=== PATIENT | female | born 1980 | race Caucasian/White ===

== ENCOUNTER 2017-01-07 14:20 | Emergency (ER) | payer OTHER ==
[~2017-01-07] VITALS: Ht 162.6 cm; Wt 97.1 kg
[2017-01-07 14:20] VITALS: BP 116/68
[~2017-01-07 14:20] MED LIST: HYDR-79 PO; HYDR5SOL PO; ONDA8TAB12 PO
--- NOTE | 2017-01-07 14:46 | PHYS DOC ---
Past History Past Medical History: Diabetes, Hypertension, Other Past Surgical History: No Surgical History Alcohol Use: None Drug Use: None Adult General Chief Complaint Chief Complaint: SHORTNESS OF BREATH [facility] HPI Patient is a 36 year old female who presents with shortness of breath. She states this started this morning and has been bad all day long. She states if she tries to do anything she gets short of breath. She also has 3 episodes of intermittent substernal chest pain that's across her entire chest, comes and goes without any reasons on each time it lasts only a few seconds. She denies any nausea vomiting or abdominal pain. She denies any swelling or pain in her legs. She states she's had a blood clot in her leg before and was diagnosed with factor V Leiden deficiency and was taken off of blood thinners. Review of Systems Review of Systems Constitutional: Denies fever or chills Eyes: Denies change in visual acuity, redness, or eye pain HENT: Denies nasal congestion or sore throat Respiratory: Denies any cough but positive shortness of breath Cardiovascular: No additional information not addressed in HPI GI: Denies abdominal pain, nausea, vomiting, bloody stools or diarrhea : Denies dysuria or hematuria Musculoskeletal: Denies back pain or joint pain Integument: Denies rash or skin lesions Neurologic: Denies headache, focal weakness or sensory changes Endocrine: Denies polyuria or polydipsia Allergies Allergies Allergies Coded Allergies Type Severity Reaction Last Updated Verified No Known Drug Allergies 12/11/15 No Physical Exam Physical Exam Constitutional: Well developed, well nourished, no acute distress, non-toxic appearance. HENT: Normocephalic, atraumatic, bilateral external ears normal, oropharynx moist, no oral exudates, nose normal. Eyes: PERRLA, EOMI, conjunctiva normal, no discharge. Neck: Normal range of motion, no tenderness, supple, no stridor. Cardiovascular:Heart rate regular rhythm, no murmur Lungs & Thorax: Bilateral breath sounds clear to auscultation Abdomen: Bowel sounds normal, soft, no tenderness, no masses, no pulsatile masses. Skin: Warm, dry, no erythema, no rash. Back: No tenderness, no CVA tenderness. Extremities: No tenderness, no cyanosis, no clubbing, ROM intact, no edema. Neurologic: Alert and oriented X 3, normal motor function, normal sensory function, no focal deficits noted. Psychologic: Affect normal, judgement normal, mood normal. EKG EKG EKG shows sinus rhythm [address] elevations or T-wave inversions, normal axis, QTC 423 ms, as interpreted by me. Radiology/Procedures Radiology/Procedures [address] [id number] IMAGING REPORT Signed PATIENT: YAZMIN GUNN ACCOUNT: [id number] : 1980 LOCATION: ER AGE: 36 SEX: F EXAM STATUS: REG ER ORD. PHYSICIAN: SANAZ MONAE MD REASON: r/o PE, factor v leiden deficiency, chest pain PROCEDURE: CT ANGIOGRAPHY CHEST Indication chest pain. Axial images through the chest were obtained. The examination was tailored for the detection of pulmonary embolus. Approximately 75 cc of Omnipaque 300 was administered. MIP images were generated and reviewed. No prior CT imaging of the chest is available. The thoracic aorta appears unremarkable. There is a possible small nodule in the left lobe of the thyroid. There is no significant hilar or mediastinal adenopathy. The study is negative for pulmonary embolus. There is a tiny 1 to 2 mm pulmonary nodule in the right upper lobe, image 18 series 4. A dominant soft tissue mass in either lung is not seen. No acute parenchymal infiltrate is seen. There is no pleural fluid or pneumothorax. Imaging through the upper abdomen is unremarkable. IMPRESSION: No acute finding seen in the chest. Negative study for pulmonary embolus. Tiny nodule right lung apex. Follow-up imaging along the lines of the Fleischner criteria should be considered. Possible small nodule in the left lobe of the thyroid Nodules detected incidentally at non-screening CT Nodule size (mm) less than or equal to 4 Low Risk patients- no follow-up needed High Risk patients- follow-up at 12 months and if no change, no further imaging needed. Nodule size > 4-6 mm Low risk patients- follow- up at 12 months and if no change, no further imaging needed High risk patients- initial follow-up CT at 6-12 months and then at 18-24 months if no change. Nodule Size > 6-8 mm Low risk patients- initial follow-up CT at 6-12 months and then at 18-24 months if no change. High risk patients- initial follow- up CT at 3-6 months and then at 9-12 months if no change, Nodule Size >8 mm Either low or high risk patients: Follow-up CT at around 3, 9 and 24 months Dynamic contrast [address], PET, and/or biopsy Note: newly detected indeterminate nodule in person 35 years of age or older. Low risk patients- minimal or absent history of smoking and/or other known risk factors. High risk patients- history of smoking or of other known risk factors. PQRS Compliance Statement: One or more of the following individualized dose reduction techniques were utilized for this examination: 1. Automated exposure control 2. Adjustment of the mA and/or kV according to patient size 3. Use of iterative reconstruction technique DICTATED AND SIGNED BY: JERRY MASTERS MD DATE: 01/07/17 1556 CC: SANAZ MONAE MD; NUHA MAYA ~ Impressions: Shortness of breath Course & Med Decision Making Course & Med Decision Making Pertinent Labs and Imaging studies reviewed. (See chart for details) Her vitals do not indicate that she's tachypnea or tachycardia. Her d-dimer was elevated but CT Angio did not show any blood clots in her lungs. Her legs do not indicate any signs of DVT. Patient's being discharged home and is follow-up with her primary care physician. Return precautions given. She's being discharged with albuterol inhaler to see if this doesn't help with her shortness of breath. Her vitals were 97.8 temperature, heart rate 77 respirations 18, sat 90% on room air with blood pressure 116/68. Dragon Disclaimer Dragon Disclaimer This chart was dictated in whole or in part using Voice Recognition software in a busy, high-work load, and often noisy Emergency Department environment. It may contain unintended and wholly unrecognized errors or omissions. Departure Departure: Impression: Primary Impression: Shortness of breath Disposition: 01 HOME, SELF-CARE Condition: STABLE Referrals: NUHA MAYA (PCP) Patient Instructions: Shortness of Breath, [id number] Additional Instructions: Your EKG, lab work and CT scanning of your chest did not show a had a blood clot in your lungs or any other abnormalities. You can use albuterol and see if this doesn't help her shortness of breath. If your shortness breath gets worse, he can't lay flat to sleep, he developed fevers, you have other concerns please return back to emergency department for further evaluation and treatment. Within next week he need to follow-up with her primary care physician. Scripts Albuterol Sulfate (PROAIR HFA INHALER) 8.5 Gm Hfa.aer.ad 1 PUFF INH PRN Q6HRS Y for SHORTNESS OF BREATH, #1 INHALER 0 Refills Prov: SANAZ MONAE MD 01/07/17 SANAZ MONAE MD Jan 07, 2017 14:46
[2017-01-07 15:24] LABS: BASO # 0.1 x10^3/uL (0.0-0.2); BASO % 1 % (0-3); EOS # 0.2 x10^3/uL (0.0-0.7); EOS % 1 % (0-3); HEMOGLOBIN 14.6 g/dL (12.0-15.5); LYMPH # 3.4 x10^3/uL (1.0-4.8); LYMPH % 25 % (24-48); MEAN CORPUSCULAR HEMOGLOBIN 31 pg (25-35); MEAN CORPUSCULAR HGB CONC 35 g/dL (31-37); MEAN CORPUSCULAR VOLUME 91 fL (79-100); MONO % 7 % (0-9); NEUT # 8.9 x10^3uL (1.8-7.7); NEUT % 66 % (31-73); PLATELET COUNT 375 x10^3/uL (140-400); RED BLOOD COUNT 4.64 x10^6/uL (3.50-5.40); RED CELL DISTRIBUTION WIDTH 12.8 % (11.5-14.5); WHITE BLOOD COUNT 13.5 x10^3/uL (4.0-11.0)
--- NOTE | 2017-01-07 15:30 | RAD ---
Portable chest, 01/07/2017: History: Shortness of breath Comparison is made to a study from 04/05/2016. The heart size and pulmonary vascularity are normal. No pulmonary infiltrates are seen. There is no evidence of pleural fluid. IMPRESSION: No acute cardiopulmonary abnormality is detected.
--- NOTE | 2017-01-07 15:32 | EKG ---
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
[2017-01-07] MEDS ORDERED: IOHEXOL 300 MG/ML 75 ML VIAL. IV ONE (15:45)
[2017-01-07 15:51] LABS: ALBUMIN 3.7 g/dL (3.4-5.0); ALK PHOS 122 U/L (46-116); ALT (SGPT) 21 U/L (14-59); ANION GAP 3 (6-14); AST (SGOT) 14 U/L (15-37); BLOOD UREA NITROGEN 10 mg/dL (7-20); CARBON DIOXIDE 32 mmol/L (21-32); CHLORIDE 104 mmol/L (98-107); CREATINE KINASE 78 U/L (26-192); CREATININE 0.9 mg/dL (0.6-1.0); DIRECT BILIRUBIN 0.1 mg/dL (0.0-0.2); GFR 70.8; GLUCOSE 77 mg/dL (70-99); SODIUM 139 mmol/L (136-145); TOTAL BILIRUBIN 0.3 mg/dL (0.2-1.0); TOTAL PROTEIN 8.5 g/dL (6.4-8.2)
--- NOTE | 2017-01-07 16:07 | RAD ---
Indication chest pain. Axial images through the chest were obtained. The examination was tailored for the detection of pulmonary embolus. Approximately 75 cc of Omnipaque 300 was administered. MIP images were generated and reviewed. No prior CT imaging of the chest is available. The thoracic aorta appears unremarkable. There is a possible small nodule in the left lobe of the thyroid. There is no significant hilar or mediastinal adenopathy. The study is negative for pulmonary embolus. There is a tiny 1 to 2 mm pulmonary nodule in the right upper lobe, image 18 series 4. A dominant soft tissue mass in either lung is not seen. No acute parenchymal infiltrate is seen. There is no pleural fluid or pneumothorax. Imaging through the upper abdomen is unremarkable. IMPRESSION: No acute finding seen in the chest. Negative study for pulmonary embolus. Tiny nodule right lung apex. Follow-up imaging along the lines of the Fleischner criteria should be considered. Possible small nodule in the left lobe of the thyroid Nodules detected incidentally at non-screening CT Nodule size (mm) less than or equal to 4 Low Risk patients- no follow-up needed High Risk patients- follow-up at 12 months and if no change, no further imaging needed. Nodule size > 4-6 mm Low risk patients- follow- up at 12 months and if no change, no further imaging needed High risk patients- initial follow-up CT at 6-12 months and then at 18-24 months if no change. Nodule Size > 6-8 mm Low risk patients- initial follow-up CT at 6-12 months and then at 18-24 months if no change. High risk patients- initial follow- up CT at 3-6 months and then at 9-12 months if no change, Nodule Size >8 mm Either low or high risk patients: Follow-up CT at around 3, 9 and 24 months Dynamic contrast [address], PET, and/or biopsy Note: newly detected indeterminate nodule in person 35 years of age or older. Low risk patients- minimal or absent history of smoking and/or other known risk factors. High risk patients- history of smoking or of other known risk factors. PQRS Compliance Statement: One or more of the following individualized dose reduction techniques were utilized for this examination: 1. Automated exposure control 2. Adjustment of the mA and/or kV according to patient size 3. Use of iterative reconstruction technique
[2017-01-07 16:14] LABS: AMPHETAMINE/METHAMPHETAMINE NEG (NEG); BARBITURATES NEG (NEG); BENZODIAZEPINES NEG (NEG); CANNABINOIDS NEG (NEG); COCAINE NEG (NEG); METHADONE NEG (NEG); OPIATES NEG (NEG); PHENCYCLIDINE NEG (NEG)
[2017-01-07 16:28] LABS: BILIRUBIN,URINE NEG (NEG); CLARITY,URINE CLEAR; COLOR,URINE YELLOW; GLUCOSE,URINE NEG (NEG)
[2017-01-07 16:29] LABS: BACTERIA,URINE 0 /HPF (0-FEW); NITRITE,URINE NEG (NEG); RBC,URINE OCC /HPF (0-2); SQUAMOUS EPITHELIAL CELL,UR FEW /LPF; UROBILINOGEN,URINE 0.2 mg/dL (0.2 mg/dL); WBC,URINE 0 /HPF (0-4)
[2017-01-07] MEDS ORDERED: ALBU8.5H8 INH (16:55)
== END 2017-01-07 17:00 | disposition home or self-care (01) ==
LOC: ER 14:20
DX: R06.02 Shortness of breath (principal); R07.2 Precordial pain; I10 Essential (primary) hypertension; E11.9 Type 2 diabetes mellitus without complications
CPT/HCPCS: 36415; 71010; 71275; 80048; 80076; 80307; 81001; 81025; 82553; 83880; 84443; 84484; 85025; 85379; 85610; 85730; 93005; 99285; Q9967; G0479

== ENCOUNTER 2017-04-21 13:34 | Emergency (ER) | payer OTHER ==
[~2017-04-21 13:34] MED LIST changes: +ALBU8.5H8 INH
[2017-04-21] MEDS ORDERED: methylPREDNISolone SOD SUCC PF 125 MG/2 ML VIAL. IM ONE (14:00)
[2017-04-21] MEDS ORDERED: BETA15OI6 TP (14:02)
[2017-04-21] MEDS ORDERED: HYDR25TA PO (14:02)
[2017-04-21] MEDS ORDERED: METH4TAB2 PO (14:02)
[2017-04-21 14:26] VITALS: BP 165/84
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
== END 2017-04-21 14:28 | disposition home or self-care (01) ==
LOC: ER 13:34
DX: L25.9 Unspecified contact dermatitis, unspecified cause (principal); E11.9 Type 2 diabetes mellitus without complications; I10 Essential (primary) hypertension
CPT/HCPCS: 96372; 99283; J2930

== ENCOUNTER 2019-01-08 11:51 | Emergency (ER) | payer OTHER ==
[~2019-01-08 11:51] MED LIST changes: +ALBU2.5V8 INH; -ALBU8.5H8 INH; +BETA15OI6 TP; +HYDR-1179 PO; -HYDR-79 PO; +HYDR25TA PO; +METH4TAB2 PO
[2019-01-08 12:52] VITALS: BP 140/104
[2019-01-08] MEDS ORDERED: ORPH-16 PO (13:05)
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
[2019-01-08] MEDS ORDERED: ORPHENADRINE CITRATE 60 MG/2 ML VIAL. IM ONE (13:30)
[2019-01-08] MEDS ORDERED: KETOROLAC 30 MG/ML VIAL. IM ONE (13:30)
== END 2019-01-08 13:42 | disposition home or self-care (01) ==
LOC: ER 11:51
DX: S16.1XXA Strain of muscle, fascia and tendon at neck level, initial encounter (principal); S39.012A Strain of muscle, fascia and tendon of lower back, initial encounter; E11.9 Type 2 diabetes mellitus without complications; I10 Essential (primary) hypertension; R51 Headache; V89.2XXA Person injured in unspecified motor-vehicle accident, traffic, initial encounter; Y93.I9 Activity, other involving external motion; Y92.488 Other paved roadways as the place of occurrence of the external cause; Y99.8 Other external cause status
CPT/HCPCS: 96372; 99284; J1885; J2360

== ENCOUNTER 2019-01-18 10:23 | Emergency (ER) | payer OTHER ==
[~2019-01-18] VITALS: Ht 162.6 cm; Wt 109.2 kg
[~2019-01-18 10:23] MED LIST changes: +ORPH-16 PO
[2019-01-18] MEDS ORDERED: IV NORMAL SALINE 1,000ML 1,000 ML IV SCH (10:31)
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
[2019-01-18 10:49] VITALS: BP 148/85
[2019-01-18 11:01] LABS: BASO # 0.1 x10^3/uL (0.0-0.2); BASO % 1 % (0-3); EOS # 0.3 x10^3/uL (0.0-0.7); EOS % 2 % (0-3); HEMATOCRIT 41.8 % (36.0-47.0); HEMOGLOBIN 14.3 g/dL (12.0-15.5); LYMPH # 3.3 x10^3/uL (1.0-4.8); LYMPH % 24 % (24-48); MEAN CORPUSCULAR HEMOGLOBIN 31 pg (25-35); MEAN CORPUSCULAR HGB CONC 34 g/dL (31-37); MEAN CORPUSCULAR VOLUME 92 fL (79-100); MONO # 0.9 x10^3/uL (0.0-1.1); MONO % 6 % (0-9); NEUT # 9.4 x10^3uL (1.8-7.7); NEUT % 67 % (31-73); PLATELET COUNT 366 x10^3/uL (140-400); RED BLOOD COUNT 4.54 x10^6/uL (3.50-5.40); RED CELL DISTRIBUTION WIDTH 12.7 % (11.5-14.5)
--- NOTE | 2019-01-18 11:10 | RAD ---
Examination: PORTABLE CHEST 1V History: Chest pain Comparison/Correlation: 01/07/2017 CTA of the chest Findings: Upright frontal view chest was obtained. Heart size and pulmonary vasculature are normal. No infiltrate or pleural effusion. No pneumothorax. Bony structures are unremarkable. Impression: No active disease. Electronically signed by: Samuel Blanchard MD (01/18/2019 11:08 AM) [facility]
[2019-01-18 11:13] LABS: ALBUMIN 3.3 g/dL (3.4-5.0); ALBUMIN/GLOBULIN RATIO 0.7 (1.0-1.7); CALCIUM 8.8 mg/dL (8.5-10.1); CREATININE 0.9 mg/dL (0.6-1.0); GFR 70.1; MAGNESIUM 1.9 mg/dL (1.8-2.4); POTASSIUM 3.9 mmol/L (3.5-5.1); TOTAL BILIRUBIN 0.2 mg/dL (0.2-1.0); TOTAL PROTEIN 8.3 g/dL (6.4-8.2)
--- NOTE | 2019-01-18 11:28 | EKG ---
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
[2019-01-18 12:11] LABS: BACTERIA,URINE 0 /HPF (0-FEW); BILIRUBIN,URINE NEG (NEG); CLARITY,URINE CLEAR; COLOR,URINE STRAW; GLUCOSE,URINE NEG (NEG); NITRITE,URINE NEG (NEG); SQUAMOUS EPITHELIAL CELL,UR FEW /LPF; UROBILINOGEN,URINE 0.2 mg/dL (0.2 mg/dL); WBC,URINE RARE /HPF (0-4)
[2019-01-18] MEDS ORDERED: HYDR5SYR PO (12:25)
[2019-01-18] MEDS ORDERED: AMOX1TAB61 PO (12:25)
== END 2019-01-18 12:37 | disposition home or self-care (01) ==
LOC: ER 10:23
DX: J20.9 Acute bronchitis, unspecified (principal); R07.89 Other chest pain; E11.9 Type 2 diabetes mellitus without complications; I10 Essential (primary) hypertension; Z86.718 Personal history of other venous thrombosis and embolism
CPT/HCPCS: 36415; 71045; 80053; 81001; 83735; 84484; 85025; 85379; 93005; 99285; J7030

== ENCOUNTER → 2020-06-28 | Outpatient (CLI) | payer OTHER ==
[~2020-06-28] MED LIST changes: +AMOX1TAB61 PO; +HYDR5SYR PO
--- NOTE | 2020-06-28 18:42 | RAD ---
EXAM: Right ankle 3 views. HISTORY: Right ankle pain after injury COMPARISON: None. FINDINGS: Three views of the right ankle are obtained. There is soft tissue swelling medially greater than laterally. No fractures are identified. Alignment is normal. Joint spaces are maintained. There are moderate plantar and posterior calcaneal spurs. IMPRESSION: 1. Soft tissue swelling. No fracture. Electronically signed by: Fernando Caicedo MD (06/28/2020 6:40 PM) [facility]
== END ==
LOC: RAD 15:17
PROVIDERS: ATTEND Physician Assistant
DX: M77.31 Calcaneal spur, right foot (principal); M79.89 Other specified soft tissue disorders
CPT/HCPCS: 73610